=== PATIENT | female | born 1980 | race Caucasian/White ===

== ENCOUNTER 2019-04-30 16:01 | Emergency (ER) | payer BC ==
[~2019-04-30] VITALS: Ht 153.7 cm; Wt 94.8 kg
[2019-04-30 16:05] VITALS: BP 118/72
[2019-04-30 17:14] LABS: BASOPHILS # (AUTO) 0.1 K/uL (0.00-0.22); BASOPHILS % (AUTO) 0.8 % (0.0-2.0); EOSINOPHILS # (AUTO) 0.2 K/uL (0-0.4); EOSINOPHILS % (AUTO) 1.5 % (0.0-4.0); HEMOGLOBIN 12.4 g/dL (12.0-16.0); LYMPHOCYTES # (AUTO) 2.3 K/uL (2.5-16.5); LYMPHOCYTES % (AUTO) 20.7 % (20.5-51.1); MEAN CORPUSCULAR HEMOGLOBIN 30 pg (27-31); MEAN CORPUSCULAR HGB CONC 33 g/dL (33-37); MEAN CORPUSCULAR VOLUME 91.4 fL (80-94); MONOCYTES # (AUTO) 0.8 K/uL (0.8-1.0); MONOCYTES % (AUTO) 6.8 % (1.7-9.3); NEUTROPHILS # (AUTO) 7.8 K/uL (1.8-7.7); NEUTROPHILS % (AUTO) 70.2 % (42.2-75.2); PLATELET COUNT (AUTO) 459 K/uL (140-450); RED BLOOD CELL COUNT(AUTO) 4.15 MIL/uL (4.20-5.40); RED CELL DISTRIBUTION WIDTH 13.1 % (11.6-13.7); WHITE BLOOD COUNT (AUTO) 11.2 K/uL (4.8-10.8)
--- NOTE | 2019-04-30 17:14 | NUR ---
PATIENT AMBULATED WITH STEADY GAIT TO BED 1.
[2019-04-30 17:36] LABS: APPEARANCE,URINE SL CLOUDY (CLEAR); BILIRUBIN,URINE NEGATIVE (NEGATIVE); BLOOD, URINE 1+ (NEGATIVE); COLOR,URINE YELLOW (YELLOW); LEUKOCYTE ESTERASE ,URINE NEGATIVE (NEGATIVE); NITRITE, URINE NEGATIVE (NEGATIVE); UGLUCOSE NEGATIVE (NEGATIVE)
--- NOTE | 2019-04-30 17:37 | NUR ---
38 Y/O FEMALE C/O LLQ ABD PAIN FOR 2 DAYS, NON RADIATING, 4/10 SHARP PAIN. DENIES ANY N/V/D. LAST BM: 04/30/2019. ABD SOFT/NON TENDER/ NO REBOUND TENDERNESS NOTED. DENIES SOB/CP. RESP EVEN AND UNLABORED. LUNG SOUNDS CLEAR IN ALL QUADRANTS. BOWEL SOUNDS NORMOACTIVE IN ALL QUADRANTS. SKIN COOL/DRY. AAOX4. CAP REFILL <3 NO PMH NKA
[2019-04-30 17:41] LABS: ALBUMIN 3.4 g/dL (3.4-5.0); ANION GAP 13.8 (8-16); CARBON DIOXIDE 28.5 mmol/L (21-32); CREATININE 0.7 mg/dL (0.6-1.3); POTASSIUM 4.3 mmol/L (3.5-5.1); TOTAL BILIRUBIN 0.2 mg/dL (0.0-1.0)
[2019-04-30 17:42] LABS: TRICHOMONAS,URINE None Seen /HPF (None Seen); WBC,URINE NONE SEEN /HPF (0-5); YEAST,URINE None Seen /HPF (None Seen)
[2019-04-30] MEDS ORDERED: CIPROFLOXACIN 250 MG TAB PO ONE (19:35)
[2019-04-30] MEDS ORDERED: metroNIDAZOLE 250 MG TAB PO ONE (19:35)
[2019-04-30 20:02] VITALS: BP 126/78
--- NOTE | 2019-04-30 20:03 | NUR ---
Patient discharged with v/s stable. Written and verbal after care instructions given and explained. Patient alert, oriented and verbalized understanding of instructions. Ambulatory with steady gait. All questions addressed prior to discharge. ID band removed. Patient advised to follow up with PMD. Rx of FLAGYL, CIPRO, NORCO, ZOFRAN given. Patient educated on indication of medication including possible reaction and side effects. Opportunity to ask questions provided and answered.
== END 2019-04-30 20:03 | disposition home or self-care (01) ==
LOC: MED 16:01
DX: K57.92 Diverticulitis of intestine, part unspecified, without perforation or abscess without bleeding (principal)
CPT/HCPCS: 36415; 74177; 80053; 81001; 81025; 85025; 99285; Q9967